=== PATIENT | female | born 1970 | race Caucasian/White ===

== ENCOUNTER → 2019-12-30 | Day surgery (SDC) | payer OTHER ==
--- NOTE | 2019-12-31 15:33 | PATH ---
Surgical Pathology Report Patient Name: BRITTANIE BREWER [facility]. Rec. #: [id number] /Age/Gender: 1970 (Age: 49) / F Account: [id number] Location: [facility] Taken: 12/30/2019 Received: 12/30/2019 Reported: 12/31/2019 Physicians: Martha Martel M.D. Specimen(s) Received A: LEFT BREAST WITH CALCIFICATIONS B: LEFT BREAST WITHOUT CALCIFICATIONS Clinical History Nonpalpable lesion Mammographic findings: Microcalcification, suspicious Final Diagnosis A. BREAST, LEFT, WITH CALCIFICATIONS, STEREOTACTIC BIOPSY: FOCAL ATYPICAL DUCTAL HYPERPLASIA (ADH) ARISING IN A BACKGROUND OF COLUMNAR CELL CHANGE WITH ASSOCIATED CALCIFICATIONS. B. BREAST, LEFT, WITHOUT CALCIFICATIONS, STEREOTACTIC BIOPSY: BENIGN BREAST TISSUE SHOWING STROMAL FIBROSIS. Electronically Signed Francesca Godinez M.D. Gross Description A. Received in formalin labeled "left breast specimen with calcifications," is a 2.7 x 2.0 x 0.2 cm aggregate of multiple yancey-yellow, irregular to cylindrical portions of fibroadipose tissue. The formalin is filtered and the specimen is entirely submitted in one cassette. B. Received in formalin labeled "left breast specimen without calcifications," is a 2.3 x 1.8 x 0.2 cm aggregate of multiple yancey-yellow, irregular to cylindrical portions of fibroadipose tissue. The formalin is filtered and the specimen is entirely submitted in one cassette. Time to formalin fixation: 10 minutes Total formalin fixation time: Approximately 8 hours. /12/30/2019 saudi/12/30/2019
== END | disposition home or self-care (01) ==
LOC: FMAMMOTONE 08:39
PROVIDERS: ATTEND Surgery Surgical Oncology
PROC: 0HBU3ZX Excision of Left Breast, Percutaneous Approach, Diagnostic (ICD-10-PCS; principal; 2019-12-30)
DX: N60.32 Fibrosclerosis of left breast (principal); N60.92 Unspecified benign mammary dysplasia of left breast; N64.89 Other specified disorders of breast; R92.1 Mammographic calcification found on diagnostic imaging of breast
CPT/HCPCS: 19081; 76098-TC-FY; 88305-TC; A4648

== ENCOUNTER 2020-02-22 07:15 | Day surgery (SDC) | payer OTHER ==
[2020-02-14 12:54] VITALS: BMI 17.4
--- NOTE | 2020-02-18 09:27 | HP ---
Admitting History and Physical - Primary Care Physician PCP: Simin Lagos - Admission Chief Complaint: Left breast atypia History of Present Illness: Patient is a 49 yo female who was noted to have left breast calcifications on screening mammo. The patient underwent a stereo core bx of the calcifications that were noted to be in the 10-11 oclock position on 12/29. The final path was c/w ADH. The MRI did not show any suspicious areas of enhancement bilaterally. The patient is now presenting for left breast WE with mag seed placement. History Source: Patient Limitations to Obtaining History: No Limitations - Past Medical History ...LMP: 02/01/20 ...: No Additional Past Medical History: NONE - Past Surgical History Past Surgical History: Yes: None - Smoking History Smoking history: Never smoked Have you smoked in the past 12 months: No - Alcohol/Substance Use Hx Alcohol Use: Yes (SOCIALLY WHEN OUT WITH FRIENDS) Home Medications - Allergies Allergies/Adverse Reactions: Allergies Allergy/AdvReac Type Severity Reaction Status Date / Time No Known Drug Allergies Allergy Verified 02/14/20 12:44 - Home Medications Home Medications: Ambulatory Orders Venlafaxine HCl [Effexor Xr] 75 mg PO DAILY 02/14/20 Family Medical History Family History: Unremarkable Review of Systems - Review of Systems Constitutional: reports: No Symptoms Breasts: reports: No Symptoms Reported Physical Examination Constitutional: Yes: Well Nourished, Calm Breast(s): Yes: Other (Symmetrical without suspicious masses or adenopathy noted bilaterally.) Problem List - Problems (1) Atypical hyperplasia of left breast Code(s): N60.92 - UNSPECIFIED BENIGN MAMMARY DYSPLASIA OF LEFT BREAST
[2020-02-22] MEDS ORDERED: LIDOCAINE HCL 1%, 10 MG/ML (20ML VIAL) ONE (10:08)
[2020-02-22] MEDS ORDERED: BUPIVACAINE HCL/PF 0.5% (5MG/ML) 10 ML VIAL ONE (10:08)
[2020-02-22] MEDS ORDERED: ONDANSETRON 4 MG/2 ML VIAL IVPUSH PRN ×2 (10:34)
[2020-02-22] MEDS ORDERED: oxyCODONE HCL 5 MG TABLET PO PRN (10:34)
[2020-02-22] MEDS ORDERED: KETOROLAC TROMETHAMINE 30 MG/1 ML VIAL IVPUSH PRN (10:34)
[2020-02-22] MEDS ORDERED: LACTATED RINGERS SOLUTION 1,000 ML IV SCH (10:45)
[2020-02-22] MEDS ORDERED: DEXTROSE 5%-0.45% SALINE 1,000 ML IV SCH (10:45)
[2020-02-22] MEDS ORDERED: MIDAZOLAM HCL 2 MG/2 ML SINGLE DOSE VIAL ONE (10:45)
[2020-02-22] MEDS ORDERED: SUCCINYLCHOLINE CHLORIDE 200 MG/10 ML SYRINGE ONE (10:49)
[2020-02-22] MEDS ORDERED: PROPOFOL 20 ML ONE ×2 (10:49)
[2020-02-22] MEDS ORDERED: DEXAMETHASONE SOD PHOSPHATE 4 MG/1 ML VIAL ONE (10:50)
[2020-02-22] MEDS ORDERED: ONDANSETRON 4 MG/2 ML VIAL ONE (10:50)
[2020-02-22] MEDS ORDERED: ceFAZolin SODIUM 1 GM VIAL ONE (11:00)
[2020-02-22] MEDS ORDERED: ISOSULFAN BLUE 10 MG/ML VIAL SQ ONE (11:06)
[2020-02-22] MEDS ORDERED: KETOROLAC TROMETHAMINE 30 MG/1 ML VIAL ONE (11:39)
--- NOTE | 2020-02-22 12:32 | OP ---
DATE OF OPERATION: 02/22/2020 PREOPERATIVE DIAGNOSIS: Left breast atypical ductal hyperplasia. POSTOPERATIVE DIAGNOSIS: Left breast atypical ductal hyperplasia. PROCEDURE: Left Magseed localized partial mastectomy. ANESTHESIA: General intubated. ATTENDING SURGEON: Sadi Lagos MD EMPLOYMENT LEGAL ASSISTANT: ERAN James ESTIMATED BLOOD LOSS: Minimal. COMPLICATIONS: None. PROCEDURE: Patient was made aware of the risks and benefits of the procedure and consented. She was placed in the supine position. Preoperatively she had gone to the radiology suite where a Magseed was placed next to the index lesion. Incidentally, the prior placed clip was over 2 cm away from the biopsy area, so the Magseed was placed in the proper position. She was then placed in the supine position and, after general anesthesia was induced, the patient was intubated. The operative site was prepped and draped in usual sterile fashion. A curvilinear periareolar incision was then made. Using the Magseed probe the area of uptake was identified and this was surgically excised and submitted with a short suture superior, long suture lateral. Specimen radiograph confirmed the presence of the lesion as well as the Magseed was identified during the surgical procedure. The wound was copiously irrigated with normal saline. . Hemostasis was maintained with electrocautery. The wound was then injected with 0.25% bupivacaine for local anesthesia. The wound was then closed with interrupted 3-0 Vicryl followed by a running subcuticular 4-0 Monocryl. Steri-Strips, sterile dressing and compression bra were then applied, and the patient having tolerated the procedure well was transferred to the recovery room in excellent condition. SADI LAGOS M.D. LUCIA/[id number]
[2020-02-22 13:02] VITALS: TEMP 98.2
[2020-02-22 13:40] VITALS: BP 130/70; PULSE 72
--- NOTE | 2020-02-25 13:32 | PATH ---
Surgical Pathology Report Patient Name: BRITTANIE BREWER [facility]. Rec. #: [id number] /Age/Gender: 1970 (Age: 49) / F Account: [id number] Location: [facility] AMBULATORY Taken: 02/22/2020 Received: 02/22/2020 Reported: 02/25/2020 Physicians: Simin Lagos M.D. Specimen(s) Received LEFT BREAST WIDE EXCISION Clinical History Left breast atypia Final Diagnosis BREAST, LEFT, WIDE EXCISION: BENIGN BREAST PARENCHYMA WITH STROMAL FIBROSIS, MICROCYSTS, COLUMNAR CELL CHANGES, USUAL DUCTAL HYPERPLASIA, AND RARE MICROCALCIFICATIONS. Electronically Signed Lita Rowan M.D. Gross Description Received in formalin, labeled "left breast wide excision," is a 3.4 x 2.5 x 0.6 cm. yancey-yellow, irregular, portion of fibroadipose tissue with a central defect. There is no needle localization wire present. There is a short suture marking the superior aspect and a long suture marking the lateral aspect, per the surgeon. There is no skin or nipple present. The specimen is inked as follows: superior and lateral blue; inferior green; medial yellow; anterior red; deep black. The specimen is serially sectioned from superior to inferior. Sectioning reveals diffuse dense white fibrous tissue. The specimen is entirely and sequentially submitted in 8 cassettes with the superior margin in cassette 1 and the inferior margin in cassette 8. Time to formalin fixation: 35 minutes Total formalin fixation time: Approximately 30 hours. 02/23/2020 saudi02/23/2020
== END 2020-02-22 13:43 | disposition home or self-care (01) ==
LOC: FASU 07:15
PROVIDERS: ATTEND Surgery Surgical Oncology
PROC: 0HBU0ZZ Excision of Left Breast, Open Approach (ICD-10-PCS; principal; 2020-02-22 11:22)
DX: N60.12 Diffuse cystic mastopathy of left breast (principal); N60.21 Fibroadenosis of right breast; N60.82 Other benign mammary dysplasias of left breast; N60.92 Unspecified benign mammary dysplasia of left breast; N64.89 Other specified disorders of breast
CPT/HCPCS: 19281; 76098-TC-FY; 84703; 88307-TC; 94760

== ENCOUNTER → 2021-05-29 | Day surgery (SDC) | payer OTHER | END | disposition home or self-care (01) | LOC: FRADUS-SUR 09:03 | PROVIDERS: ATTEND Physician Assistant | PROC: 0HBT3ZX Excision of Right Breast, Percutaneous Approach, Diagnostic (ICD-10-PCS; principal; 2021-05-29) | DX: N60.81 Other benign mammary dysplasias of right breast (principal); N64.89 Other specified disorders of breast; N63.11 Unspecified lump in the right breast, upper outer quadrant | CPT/HCPCS: 19085; 77065-TC; A4648; A9579; C1887 ==

== ENCOUNTER → 2022-08-15 | Day surgery (SDC) | payer OTHER | END | disposition home or self-care (01) | LOC: FMAMMOTONE 10:36 | PROVIDERS: ATTEND Physician Assistant | PROC: 0HBT3ZX Excision of Right Breast, Percutaneous Approach, Diagnostic (ICD-10-PCS; principal; 2022-08-15) | DX: N60.21 Fibroadenosis of right breast (principal); N64.89 Other specified disorders of breast; R92.1 Mammographic calcification found on diagnostic imaging of breast | CPT/HCPCS: 19081; 76098-TC-FY; 87899; 88305-TC; A4648 ==

== ENCOUNTER → 2023-08-07 | Day surgery (SDC) | payer OTHER | END | disposition home or self-care (01) | LOC: FMAMMOTONE 10:57 | PROVIDERS: ATTEND Physician Assistant | PROC: 0HBT3ZX Excision of Right Breast, Percutaneous Approach, Diagnostic (ICD-10-PCS; principal; 2023-08-07) | DX: N60.11 Diffuse cystic mastopathy of right breast (principal); N60.31 Fibrosclerosis of right breast; N64.89 Other specified disorders of breast; R92.0 Mammographic microcalcification found on diagnostic imaging of breast | CPT/HCPCS: 19081; 76098-TC-FY; 88305-TC ==